=== PATIENT | female | born 1960 | race Caucasian/White ===

== ENCOUNTER 2018-12-21 15:52 | Emergency (ER) | payer OTHER ==
[~2018-12-21] VITALS: Ht 165.1 cm; Wt 95.3 kg
[~2018-12-21 15:52] MED LIST: ASA81 MG PO; METFORMIN HCL500 MG PO; PREVACID30 MG PO; TOPROL XL50 M1 PO; ZOCOR20 MG PO
[2018-12-21] MEDS ORDERED: PROTONIX40 MG PO (16:09)
[2018-12-21] MEDS ORDERED: SYNTHROID88 MCG PO (16:10)
== END 2018-12-21 20:10 | disposition home or self-care (01) ==
LOC: ER 15:52
DX: F41.8 Other specified anxiety disorders (principal); R10.84 Generalized abdominal pain